=== PATIENT | female | born 1960 | race Two or more races ===

== ENCOUNTER → 2018-08-21 | Day surgery (SDC) | payer OTHER ==
[~2018-08-21] MED LIST: IV RINGERS,LACTATED 1000ML 1,000 ML IV SCH; LIDOCAINE 1% PF 2 ML VIAL. ID PRN; MIDAZOLAM HCL/PF 2 MG/2 ML VIAL. IV PRN; OMEP20TA8 PO; PROPOFOL 40 ML IV ONE; TIZA4TAB PO; fentaNYL PF VIAL 100 MCG/2 ML VIAL IV PRN
--- NOTE | 2018-08-21 10:15 | PDOC1 ---
HISTORY & PHYSICAL H&P Derrick Carter 1960 08/08/2018 10:00 AM 10/16 [place] [facility] PATIENTS [facility] [address] [place] [address]. [phone] Patient: Derrick Carter Date of : 1960 Date: 08/08/2018 10:00 AM Visit Type: Consult This 58 year old female presents for weight loss and constipation. History of Present Illness: 1. weight loss Derrick Carter is a 58 year old female who presents for evaluation of weight loss. There is weight loss. The onset was gradual. The severity is mild. Weight lost is 8 lbs. Weight loss contributing factors include Has poor appetite. Works two or three jobs.. She has had no prior studies. Derrick Carter is a 58 year old female who presents for evaluation of constipation. The problem is ongoing. The severity is mild. Has infrequent bowel movements and has to strain and it was thought to be due to Parkinson's disease. The pertinent history includes: neuromuscular disease. She has had no prior studies. INTAKE COMMENTS: Intake Comments: patient states she is here due to weight loss PROBLEM LIST: Problem Description Onset Date Chronic Clinical Status Notes Malaise and fatigue 04/14/2014 Y Mapped from [facility] Chronic Conditions table on by the ICD9 to SNOMED Bulk Mapping Utility. The mapped diagnosis code was Fatigue, 780.79, added by Francisco Merchant, with responsible provider Francisco Merchant MD. Onset date 04/14/2014; last addressed on 04/14/2014. Gastroesophageal reflux disease 04/14/2014 Y Mapped from [facility] Chronic Conditions table on 05/05/2014 by the ICD9 to SNOMED Bulk Mapping Utility. The mapped diagnosis code was GERD (gastroesophageal reflux disease), 530.81, added by Francisco Merchant, with responsible provider Francisco Merchant MD. Onset date 2013; last addressed on 05/01/2014. Backache 04/14/2014 Y Mapped from [facility] Chronic Conditions table on 05/05/2014 by the ICD9 to SNOMED Bulk Mapping Utility. The mapped diagnosis code was Back pain, 724.5, added by Francisco Merchant, with responsible provider Francisco Merchant MD. Onset date 04/14/2014; last addressed on 04/14/2014. Pain in limb 04/14/2014 Y Mapped from [facility] Chronic Conditions table on 2013 by the ICD9 to SNOMED Bulk Mapping Utility. The mapped diagnosis code was Left leg pain, 729.5, added by Francisco Merchant, with responsible provider Francisco Merchant MD. Onset date 04/14/2014; last addressed on 04/14/2014. Constipation 04/14/2014 Y Mapped from [facility] Chronic Conditions table on 2013 by the ICD9 to SNOMED Bulk Mapping Utility. The mapped diagnosis code was Constipation, 564.00, added by Francisco Merchant, with responsible provider Francisco Merchant MD. Onset date 04/14/2014; last addressed on 05/01/2014. Allergic rhinitis 02/20/2015 Essential hypertension 05/27/2016 Impacted cerumen of both ears 02/20/2015 Dyspnea 04/14/2014 Y Mapped from [facility] Chronic Conditions table on 07/09/2014 by Dustin Thomas. The mapped diagnosis code was Dyspnea,786.09, added by Francisco Merchant , with responsible provider Francisco Merchant MD. Onset date 2013; last addressed on 04/14/2014. PAST MEDICAL/SURGICAL HISTORY (Detailed) Disease/disorder Onset Date Management Date Comments Hypertension Family History (Detailed) Relationship Family Member Name Age at Condition Onset Age Cause of Father N Coronary artery disease 50 N Social History: (Detailed) The patient is right-handed. Preferred language is Serbian. The patient does not need an makeup sales advisor. MARITAL STATUS/FAMILY/SOCIAL SUPPORT Currently . CHILDREN Has children: 1 son(s). 1 daughter(s). HOME ENVIRONMENT Housing status is stable/permanent. Tobacco use status: Never smoked tobacco. Smoking status: Never smoker. TOBACCO CESSATION INFORMATION Date Counseled By Order Status Description Code Tobacco Cessation Information 05/01/2014 Fermín Mart Tobacco cessation counseling completed Tobacco cessation counseling ALCOHOL There is no history of alcohol use. CAFFEINE The patient uses caffeine: tea. EXPERIENCE Patient has no experience. Medications (active prior to today) Medication Name Sig Description Start Date Stop Date Refilled Rx Elsewhere Women's One Daily 18 mg iron-400 mcg-500 mg Ca tablet take 1 tab daily 2013 N Senna-S 8.6 mg-50 mg tablet take 2 tablet by oral route every day 07/08/2016 N tizanidine 4 mg tablet take 1 tablet by oral route twice a day as needed 2017 N omeprazole 20 mg capsule,delayed release take 1 capsule (20MG) by ORAL route every day before breakfast 07/31/2018 N Medication Reconciliation Medications reconciled today. Medication Reviewed Adherence Medication Name Sig Desc Elsewhere Status taking as directed Women's One Daily 18 mg iron-400 mcg-500 mg Ca tablet take 1 tab daily N Verified taking as directed Senna-S 8.6 mg-50 mg tablet take 2 tablet by oral route every day N Verified taking as directed tizanidine 4 mg tablet take 1 tablet by oral route twice a day as needed N Verified taking as directed omeprazole 20 mg capsule,delayed release take 1 capsule (20MG ) by ORAL route every day before breakfast N Verified taking as directed cyanocobalamin (vit B-12) 1,000 mcg/mL injection solution inject 1 milliliter by intramuscular route 4 times every month for anemia N Verified Medications (Added, Continued or Stopped today) Start Date Medication Directions PRN Status PRN Reason Instruction Stop Date 07/31/2018 omeprazole 20 mg capsule,delayed release take 1 capsule (20MG) by ORAL route every day before breakfast N 07/08/2016 Senna-S 8.6 mg-50 mg tablet take 2 tablet by oral route every day N 05/10/2018 tizanidine 4 mg tablet take 1 tablet by oral route twice a day as needed N 04/14/2014 Women's One Daily 18 mg iron-400 mcg-500 mg Ca tablet take 1 tab daily N Allergies: Ingredient Reaction (Severity) Medication Name Comment NO KNOWN ALLERGIES Review of Systems System Neg/Pos Details Constitutional Negative Chills, Fever and Malaise. ENMT Negative Sore throat. Eyes Negative Double vision. Respiratory Negative Dyspnea and Wheezing. Cardio Negative Chest pain and Irregular heartbeat/palpitations. GI Positive See HPI. GI Negative See HPI. Negative Dysuria and Hematuria. Endocrine Negative Cold intolerance and Heat intolerance. Psych Negative Anxiety. Integumentary Negative Hives and Rash. MS Negative Joint pain. Davion/Lymph Negative Easy bleeding and Easy bruising. Allergic/Immuno Negative Food allergies. Vital Signs Time BP mm/Hg Pulse /min Resp /min Temp F Ht ft Ht in Ht cm Wt lb Wt kg BMI kg/ m2 BSA m2 O2 Sat% 10:00 AM 120/80 87 12 97.7 5.0 3.00 160.02 124.40 56.427 22.04 1.58 99 Measured By Time Measured by 10:00 AM Tierra Swygert PHYSICAL EXAM: Exam Findings Details Constitutional Normal Well developed. Eyes Normal Conjunctiva - Right: Normal, Left: Normal. Sclera - Right: Normal, Left: Normal. Nasopharynx Normal Lips/teeth/gums - Normal. Neck Exam Normal Inspection - Normal. Thyroid gland - Normal. Respiratory Normal Inspection - Normal. Auscultation - Normal. Cardiovascular Normal Regular rate and rhythm. No murmurs, gallops, or rubs. Abdomen Normal Inspection - Normal. Anterior palpation - No guarding. No abdominal tenderness. No hepatic enlargement. No spleen enlargement. No hernia. No Ascites. Skin Normal Inspection - Normal. Extremity Normal No edema. Psychiatric Normal Orientation - Oriented to time, place, person & situation. Appropriate mood and affect. Assessment/Plan # Detail Type Description 1. Assessment Weight loss (R63.4). Patient Plan schedule EGD at [facility]. Has loss of appetite. Plan Orders Further diagnostic evaluations ordered today include(s) EGD to be performed today. 2. Assessment Slow transit constipation (K59.01). Patient Plan Await colonoscopy result. 3. Assessment Encounter for screening colonoscopy (Z12.11). Patient Plan schedule colonoscopy at [facility] Plan Orders Further diagnostic evaluations ordered today include(s) Colonoscopy , flexible; diagnostic to be performed today. Co-Sign Orders Order Ordering Provider Cosigned Name Cosigned Date Cosigner Comments EGD Heron Merchant 08/08/2018 Colonoscopy, flexible; diagnostic Hreon Merchant 08/08/2018 Active Patient Care Team Members Name Contact Agency Type Support Role Relationship Active Date Inactive Date Specialty Francisco Merchant MD Patient provider PCP Internal Med Document Electronically signed: Heron Merchant MD 08/08/2018 01:33 PM Document generated by: Heron Merchant 08/08/2018 Jimmie Sheth MD, Family Practice; Percy Arias MD Internal Medicine; Joann Davidson MD, Internal Medicine; Francisco Merchant MD Internal Medicine; Heron Merchant MD, Gastroenterology; Amol Quinonez MD, Rheumatology, Wendy Chappell APRN ------ 08/21/18 Patient seen and examined. No change in H&P. HERON MERCHANT MD Aug 21, 2018 10:15
[2018-08-21 11:51] VITALS: BP 114/75
--- NOTE | 2018-08-22 16:12 | PATHOLOGY ---
[facility] Accession Number: [id number] . 01 Material submitted: . GASTRIC BODY BIOPSY . 01 Clinical history: . Weight loss . 02 Diagnosis: Gastric biopsies, gastric body: - Superficial active chronic gastritis, moderate, with Helicobacter organisms identified. . (JPM:tile edger; 08/22/2018) MBR/08/22/2018 . 02 Comment: Sections of the gastric biopsy reveal segments of gastric body mucosa showing superficial moderate active chronic inflammation. A properly controlled immunoperoxidase stain for Helicobacter reveals focally prominent numbers of Helicobacter organisms. There is no evidence of malignancy. . Special stain performed: Immunoperoxidase stain for Helicobacter. . (JPM:tile edger; 08/22/2018) . 02 Electronically signed: . Amilcar Liriano MD, Pathologist NPI- [id number] . 01 Gross description: . Received in formalin labeled "Derrick Carter, gastric body BX," are 2 segments of mata soft tissue measuring 0.9 x 0.5 x 0.3 cm in aggregate dimensions and ranging from 0.5 to 0.7 cm in maximum dimension. The specimen is submitted entirely in cassette A1. (TSD; 08/21/2018) TOB/TOB . 02 Pathologist provided ICD-10: K29.30, B96.81 . 02 CPT . 984558, [id number] Specimen Comment: A courtesy copy of this report has been sent to Specimen Comment: [phone]. Specimen Comment: Report sent to Performed at: 01 [facility] [address], [place], [place] [id number] MD Sajan Ball MD Phone: [phone] Performed at: 02 [facility] [address], [place] [id number] MD Amilcar Liriano MD Phone: [phone]
== END | disposition home or self-care (01) ==
LOC: SURG 09:35
PROVIDERS: ATTEND Internal Medicine Gastroenterology
DX: K59.01 Slow transit constipation (principal); K29.50 Unspecified chronic gastritis without bleeding; B96.81 Helicobacter pylori [H. pylori] as the cause of diseases classified elsewhere; K31.89 Other diseases of stomach and duodenum; K21.9 Gastro-esophageal reflux disease without esophagitis; R63.4 Abnormal weight loss; G20 Parkinson's disease; K63.89 Other specified diseases of intestine; I10 Essential (primary) hypertension; Z82.49 Family history of ischemic heart disease and other diseases of the circulatory system; Z72.0 Tobacco use; Z79.899 Other long term (current) drug therapy; Z68.22 Body mass index [BMI] 22.0-22.9, adult
CPT/HCPCS: 43239; 45378; J2704; 88305; 88342